=== PATIENT | female | born 1975 | race African-American/Black ===

== ENCOUNTER 2018-07-01 14:07 | Outpatient (CLI) | payer BC ==
--- NOTE | 2018-07-01 16:00 | RAD ---
THREE VIEWS CERVICAL SPINE 07/01/18 HISTORY: Neck pain. History of C1-2 fusion. FINDINGS: Cervical spine collar is in place. There is a fracture involving the odontoid and appears to represen t a type II fracture. The distal fracture fragment is slightly displaced dorsally. Fracture is transf ixed by pedicular screws and posterior rods. The left sided pedicular screws and posterior rods demon strate angulation compared to the pedicular screws and rods on the right. Only a small portion of the distal superior screw overlies the posterior arch of the C1 vertebral body involving the screw and p osterior shani on the left. No prior studies are available for comparison. The vertebral body heights appear to be within normal limits. However, small defects are seen in the superior end plates of the C4, C5 and to a lesser extent C6 vertebral bodies which may be within norm al limits for the patient. No additional fracture or subluxation is appreciated on this exam. There i s increased density material seen posterior to the C3-4 level which may be related to overlying artif act from patient's cervical spine collar. Prevertebral soft tissues are within normal limits. IMPRESSION: 1. Posterior rods and pedicular screws transfixing the fracture of the odontoid. The distal fra cture fragment\C2 body is displaced dorsally by 5 mm. The left sided pedicular screw and posterior ro ds are much more angulated than the right sided pedicular screw and shani with only a small portion of the superior screw on the left overlying the posterior arch of the C1 vertebral body. No prior studi es are available to evaluate for positioning of these screws. Clinical correlation is recommended. 2. Small defects in the superior end plates of the C4, C5 and to a lesser extent C6 vertebral susan dies which may be within normal limits for the patient and thought less likely to represent compressi on fractures although this cannot be entirely excluded. 1. POS: [facility]
== END 2018-07-01 14:08 | disposition home or self-care (01) ==
LOC: TBSIIMAG 14:07
PROVIDERS: ATTEND Neurological Surgery
DX: M54.2 Cervicalgia (principal); S12.110A Anterior displaced Type II dens fracture, initial encounter for closed fracture
CPT/HCPCS: 72040

== ENCOUNTER 2018-08-13 12:40 | Outpatient (CLI) | payer BC ==
--- NOTE | 2018-08-13 13:06 | RAD ---
CERVICAL SPINE THREE VIEWS: History: Follow up surgery. Comparison: 07-01-18 FINDINGS: Post-operative changes are again noted at C1 and C2. The pedicle screws and rods are unchanged in pos ition. The displaced odontoid fracture is unchanged in position. The cervical vertebrae below C2 remain normal in alignment and unchanged. IMPRESSION: Post-operative changes at C1-2 with displaced odontoid is again noted. No change in the hardware or i n the cervical alignment. The displaced odontoid is unchanged in position from the prior study. POS: [facility]
== END 2018-08-13 12:41 | disposition home or self-care (01) ==
LOC: TBSIIMAG 12:40
PROVIDERS: ATTEND Neurological Surgery
DX: M54.2 Cervicalgia (principal)
CPT/HCPCS: 72040

== ENCOUNTER 2018-09-17 13:12 | Outpatient (CLI) | payer BC ==
--- NOTE | 2018-09-17 14:11 | RAD ---
CERVICAL SPINE RADIOGRAPHS FOUR VIEWS: 09/17/2018 PROVIDED CLINICAL HISTORY: Postop. COMPARISON: 08/13/2018 FINDINGS: Postoperative changes at the C1-C2 level are again demonstrated, without significant change with resp ect to the prior examination. Apparent displacement of the odontoid is redemonstrated. This does no t appear significantly changed with flexion and extension. Cervical alignment appears otherwise norm al. No prevertebral soft tissue swelling apparent. IMPRESSION: Stable radiographic appearance of the cervical spine. POS: [facility]
== END 2018-09-17 13:13 | disposition home or self-care (01) ==
LOC: TBSIIMAG 13:12
PROVIDERS: ATTEND Neurological Surgery
DX: S12.9XXD Fracture of neck, unspecified, subsequent encounter (principal); Z98.890 Other specified postprocedural states
CPT/HCPCS: 72040

== ENCOUNTER 2019-02-17 14:40 | Outpatient (CLI) | payer BC ==
--- NOTE | 2019-02-17 15:30 | RAD ---
CERVICAL SPINE SERIES THREE VIEWS FLEXION AND EXTENSION: HISTORY: Follow up of surgery. COMPARISON: Exam from 12/18/2018. FINDINGS: Postoperative changes at the C1-C2 level are again demonstrated with a fracture of one of the screws at C1. The healed anteriorly displaced and angulated odontoid fracture is stable. No abnormal motion in flexion or extension. IMPRESSION: Stable postoperative change. POS: [facility]
== END 2019-02-17 14:41 | disposition home or self-care (01) ==
LOC: TBSIIMAG 14:40
PROVIDERS: ATTEND Neurological Surgery
DX: S12.9XXA Fracture of neck, unspecified, initial encounter (principal); Z98.890 Other specified postprocedural states
CPT/HCPCS: 72040

== ENCOUNTER 2019-08-26 07:59 | Outpatient (CLI) | payer BC ==
--- NOTE | 2019-08-26 09:31 | RAD ---
CERVICAL SPINE 2 VIEWS: HISTORY: Neck pain. Followup. COMPARISON: Comparison is made to cervical spine films of 02/17/2019. FINDINGS: The displaced healed angulated healed odontoid fracture is stable in appearance. The pedicle screws are unchanged in appearance. Fracture of one of the C1 pedicle screws is again noted. No change in alignment or appearance of the hardware. The vertebral bodies below C2 show normal height and alignment. IMPRESSION: Stable cervical spine findings. POS: [facility]
== END 2019-08-26 08:00 | disposition home or self-care (01) ==
LOC: BICRAD 07:59
PROVIDERS: ATTEND Neurological Surgery
DX: M54.2 Cervicalgia (principal); M53.2X2 Spinal instabilities, cervical region
CPT/HCPCS: 72040

== ENCOUNTER 2020-03-01 12:41 | Outpatient (CLI) | payer BC ==
--- NOTE | 2020-03-01 13:15 | RAD ---
4 views of the cervical spine: 03/01/2020 COMPARISON: 08/26/2019 and prior HISTORY: Neck pain, prior cervical spine surgery FINDINGS: There is postoperative fusion hardware bilaterally which includes vertically oriented inter locking rods as well as screws in the region of the C1 and C2 levels. The right-sided superior screw demonstrates stable fracture. The left-sided superior screw terminates over the inferior cortex of the occipital bone and may be extraosseous, these findings are stable when compared to numerous examinations. The right-sided screws overlie C1 and C2. Anteriorly displaced fracture fragment of C2 vertebral body/odontoid process is stable with probable at least partial fusion of C1 and C2 at the fracture site. CT could better assess this region if clinically warranted. No prevertebral soft tissue swelling. No new findings when compared to the prio r exam. IMPRESSION: Stable cervical spine imaging as above.
== END 2020-03-01 12:42 | disposition home or self-care (01) ==
LOC: TBSIIMAG 12:41
PROVIDERS: ATTEND Neurological Surgery
DX: M54.2 Cervicalgia (principal)
CPT/HCPCS: 72040